=== PATIENT | female | born 1975 | race Caucasian/White ===

== ENCOUNTER 2025-01-15 07:19 | Emergency (ER) | payer BC ==
[~2025-01-15] VITALS: Ht 160 cm; Wt 63.1 kg
[2025-01-15] MEDS: dexamethasone sod phosphate 10mg/ml inj IV STA (07:45)
[2025-01-15] MEDS: famotidine/PF 10 mg/ml inj IV ONE (07:45)
--- NOTE | 2025-01-15 07:45 | Physician Documentation ---
History of Present Illness ~ Chief Complaint: Allergic Reaction Stated Complaint: ALLERGIC REACTION Time Seen by MD: 07:29 HPI 49-year-old female presenting with acute onset difficulty swallowing. She states the symptoms initially started mildly yesterday but then worsened when she woke up this morning. States that she has difficulty swallowing her saliva and feels like she may be having an allergic reaction to something unknown. Patient denies any environmental or food allergies. States that yesterday she was just at home and was not doing anything in particular. She started noticing this issue in the evening and it significantly worsened today. Denies any chest pain or significant shortness of breath but states that she is having issues swallowing her saliva. Denies any fever, chills or any other associated symptoms. Medication Reconciliation Allergies: Coded Allergies: No Known Allergies (Unverified , 01/15/25) Past Medical History Past Medical History: No Pertinent History Review of Systems All Other Systems at this time: Reviewed and Negative Physical Exam Vital Signs: Temperature: 97.8, Source: Temporal, Heart Rate: 106, Respiratory Rate: 18, BP: 148/11, Pulse Oximetry: 100, Weight: 63.100 Physical Exam I have reviewed the triage vitals. CONST: Well developed and well nourished. In no acute distress HENT: Head Atraumatic EYES: Pupils are equal, round and reactive to light. Normal conjunctiva NECK: Normal range of motion. Supple. CARDIO: Normal rate and regular rhythm. No murmurs, rubs, or gallops. S1, S2. PULM/CHEST: No respiratory distress. Lungs clear to auscultation. No wheeze ABD: Soft and nontender. Nondistended. Bowel sounds normal. No guarding. : Exam deferred MSK: No edema. No deformity. NEURO: Alert and oriented to person, place and time. Moving all extremities SKIN: Warm and dry. PSYCH: Normal mood and affect. Good eye contact. Progress Results/Orders Results/Orders Orders - ALYSSA FELICIANO MD * Rt Notification Q1H (01/15/25 07:37) Chest,Single View (01/15/25 07:39) Hs Troponin I W Calculations (01/15/25 09:39) Neck For Soft Tissues (01/15/25 ) Ct Neck Soft Tissues (01/15/25 10:12) Completed Orders - ALYSSA FELICIANO MD Dexamethasone Inj (Decadron 10mg/Ml Inj) (01/15/25 07:37) Famotidine/Pf Iv Inj (Pepcid Iv Inj) (01/15/25 07:40) Cetirizine Tablet (Zyrtec Tablet) (01/15/25 07:40) Racepinephrine Nebule (S-2 Nebule) (01/15/25 07:40) Electrocardiogram (01/15/25 07:39) Cbc/Diff (01/15/25 07:39) CK (01/15/25 07:39) CKMB (01/15/25 07:39) Chest,Single View (01/15/25 07:39) CMP (01/15/25 07:39) Hs Troponin I W Calculations (01/15/25 07:39) Neck For Soft Tissues (01/15/25 ) Ct Neck Soft Tissues (01/15/25 10:12) Hcg, Ur Ql (01/15/25 08:24) Iohexol 300mg/Ml 100ml Inj. (Omnipaque-3 (01/15/25 08:40) Alprazolam Tablet (Xanax Tablet) (01/15/25 09:00) Nitroglycerin Sublingual Tab (Nitrostat (01/15/25 11:35) Medications Received in ER Medications (Trade) Dose Ordered Sig/Jamee Route PRN Reason Start Time Stop Time Status Last Admin Dose Admin (Decadron 10mg/ ml inj) 10 mg ONCE STAT IV 01/15/25 07:37 01/15/25 07:39 DC 01/15/25 07:45 10 MG (Pepcid IV inj) 20 mg ONCE ONCE IV 01/15/25 07:40 01/15/25 07:41 DC 01/15/25 07:45 20 MG (Zyrtec tablet) 10 mg NOW ONCE PO 01/15/25 07:40 01/15/25 07:41 DC 01/15/25 07:47 10 MG (S-2 nebule) 0.5 ml ONCE ONCE IH 01/15/25 07:40 01/15/25 07:41 DC 01/15/25 08:09 0.5 ML (Xanax tablet) 1 mg ONCE ONCE PO 01/15/25 09:00 01/15/25 09:02 DC 01/15/25 09:40 1 MG (Nitrostat SL tablet) 0.4 mg NOW ONCE SL 01/15/25 11:35 01/15/25 11:37 DC 01/15/25 11:42 0.4 MG Vital Signs 01/15/25 01/15/25 01/15/25 01/15/25 07:22 08:10 08:17 08:31 Temp 97.8 Pulse 106 90 110 Resp 18 20 25 B/P (MAP) 148/11 Pulse Ox 100 99 99 O2 Delivery Room Air* Room Air* O2 Flow Rate 0 0 FiO2 21 21 01/15/25 01/15/25 01/15/25 08:31 09:15 10:20 Temp 97.8 97.8 97.8 Pulse 102 88 87 Resp 20 20 17 B/P (MAP) 152/101 (118) 137/104 (115) 122/81 (95) Pulse Ox 99 100 99 O2 Flow Rate 0 0 0 FiO2 21 Laboratory Tests Test 01/15/25 08:03 01/15/25 08:16 Urine HCG, Qualitative Negative White Blood Count 5.0 Red Blood Count 4.00 L Hemoglobin 12.5 Hematocrit 36.4 Mean Corpuscular Volume 91.1 Mean Corpuscular Hemoglobin 31.4 H Mean Corpuscular Hemoglobin Concent 34.4 Red Cell Distribution Width 12.7 Platelet Count 281 Mean Platelet Volume 7.6 Neutrophils (%) (Auto) 45.2 Lymphocytes (%) (Auto) 42.1 Monocytes (%) (Auto) 10.5 Eosinophils (%) (Auto) 1.6 Basophils (%) (Auto) 0.6 Neutrophils # (Auto) 2.3 Lymphocytes # (Auto) 2.1 Monocytes # (Auto) 0.5 Eosinophils # (Auto) 0.1 Basophils # (Auto) 0.0 CBC Comment Sodium Level 137 Potassium Level 3.2 L Chloride Level 101 Carbon Dioxide Level 25.0 Anion Gap 11 Blood Urea Nitrogen 6 L Creatinine 0.90 Estimated GFR/1.73 m2 67 BUN/Creatinine Ratio 6.7 L Glucose Level 83 Calcium Level 8.8 Total Bilirubin 0.4 Aspartate Amino Transf (AST/SGOT) 22 Alanine Aminotransferase (ALT/SGPT) 32 Alkaline Phosphatase 37 L Total Creatine Kinase 100 Creatine Kinase MB 0.8 Creatine Kinase MB Relative Index 0.8 Troponin I High Sensitivity 5 Total Protein 7.0 Albumin 4.0 Globulin 3.0 Albumin/Globulin Ratio 1.3 Chemistry Comments EKG/XRAY/CT/US/VASC/MRI EKG : Additional Comment EKG as interpreted by ED MD showing sinus tachycardia with a rate of 101 beats per minute, normal axis, no ischemia Chest X-Ray : Additional Comments CHEST RADIOGRAPH Indication: SOB Technique: Single frontal view of the chest was obtained COMPARISON: None FINDINGS: Lines and Tubes: None Lungs: Clear Pleura: No effusion. No pneumothorax. Cardiomediastinal contours: Unremarkable Bones: Unremarkable IMPRESSION: No acute disease. Bone/Soft Tissue X-Ray (Spine) : Additional Comment Procedure: DI NECK FOR SOFT TISSUES Exam Date: 01/15/2025 07:55 AM History: SOB Comparison Study: None Technique: Soft Tissue Neck: AP and lateral views. Findings: No evidence of soft tissue swelling or radiopaque foreign body. Epiglottis appears normal. Multilevel degenerative changes of the spine. Impression: Negative soft tissue neck. : Impression EXAM: CT CT NECK SOFT TISSUES W/ IV CONTRAST INDICATION: pharyngeal occlusion Exam Date: 01/15/2025 10:02 AM COMPARISON: DI NECK FOR SOFT TISSUES on DOS: 01/15/25 TECHNIQUE: CT of the neck with intravenous contrast. RADIATION DOSE: CTDIvol: 12.2 mGy, DLP: 353.4 mGy*cm FINDINGS: [id number] diffuse esophageal wall thickening. There is no evidence of cervical mass lesion, pathologically enlarged lymph nodes or fluid collection. The fat planes of the neck appear intact. The airway and larynx are unremarkable. The parotid, submandibular and thyroid glands are unremarkable. The vascular structures of the neck appear patent. The visualized lung apices are clear. The limited visualized portions of the brain are unremarkable. Degenerative changes of the spine. IMPRESSION: [id number] diffuse esophageal wall thickening; nonspecific. Medical Decision Making Differential Diagnosis 49-year-old female presenting with acute onset dysphagia. Initially we suspected that she may have an allergic reaction to something. She was given 10 mg of IV dexamethasone and also 20 mg of IV Pepcid. Additionally she was given cetirizine 10 mg p.o.. Chest x-ray was unremarkable. Soft tissue x-ray of the neck was also unremarkable. The patient was having difficulty swallowing solids but not liquids however she was able to swallow the cetirizine tablet without any difficulty. A CT of the neck soft tissue did not show any occlusion or obstruction but did show some mild edema around the upper esophagus. Patient's lab work was unremarkable. Patient was given sublingual nitroglycerin 0.4 mg with some improvement of symptoms. While in the ED her symptoms also gradually improved. I suspect that the patient may have had potential globus syndrome versus anxiety versus allergic reaction amongst other etiologies. The patient's vital signs are normal and she looks clinically well. At this point in time I believe she is stable and safe for discharge home. I advised the patient to monitor her symptoms for several days for resolution. I encouraged her to drink plenty of fluids. Of note the patient also improved after she was given alprazolam prior to the CT as she was very anxious so some of this may be anxiety related as well it patient advised to follow up with PCP in the next 2-5 days and return to the ED with any acutely worsening symptoms. Departure Disposition: HOME / SELF CARE / HOMELESS Impression: Primary Impression: Dysphagia Condition: Improved Discharge Instructions: Dysphagia Referrals: NO PRIMARY CARE PROVIDER (PCP) Signature Scribe Signature: 1 Attestation: 1 ALYSSA FELICIANO MD Jan 15, 2025 07:45
--- NOTE | 2025-01-15 08:06 | ELECTROCARDIOGRAPH REPORT ---
[facility] Test Date: 2025-01-15 Test Time: 08:03:24 Pat Name: DEB BELL Department: [facility]- Patient ID: [facility]-[id number] Room: Gender: F Hot [employer] Helper: : 1975 Requested By: ALYSSA FELICIANO Order Number: [id number] Reading MD: Dr. Matt Santoro Measurements Intervals [place] Rate: 101 P: 52 OR: 178 QRS: -6 QRSD: 98 T: 23 QT: 358 QTc: 465 Interpretive Statements Sinus tachycardia Left atrial enlargement Electronically Signed On 01-15-2025 19:42:[address] Matt Santoro Please click the below link to view image of tracing.
[2025-01-15] MEDS: racepinephrine 11.25mg/0.5ml nebule IH ONE (08:09)
[2025-01-15 08:10] VITALS: PULSE 90; RESP 20; O2SAT 99
[2025-01-15 08:17] VITALS: PULSE 110; RESP 25; O2SAT 99
--- NOTE | 2025-01-15 08:19 | RADIOLOGY REPORT ---
Procedure: DI NECK FOR SOFT TISSUES Exam Date: 01/15/2025 07:55 AM History: SOB Comparison Study: None Technique: Soft Tissue Neck: AP and lateral views. Findings: No evidence of soft tissue swelling or radiopaque foreign body. Epiglottis appears normal. Multilevel degenerative changes of the spine. Impression: Negative soft tissue neck.
--- NOTE | 2025-01-15 08:19 | RADIOLOGY REPORT ---
CHEST RADIOGRAPH Indication: SOB Technique: Single frontal view of the chest was obtained COMPARISON: None FINDINGS: Lines and Tubes: None Lungs: Clear Pleura: No effusion. No pneumothorax. Cardiomediastinal contours: Unremarkable Bones: Unremarkable IMPRESSION: No acute disease.
[2025-01-15 08:25] LABS: MEAN PLATELET VOLUME 7.6 FL (7.4-10.4); RED CELL DISTRIBUTION WIDTH 12.7 % (11.5-14.5)
[2025-01-15] MEDS ORDERED: iohexol 300mg/ml 100ml inj. ONE (08:40)
[2025-01-15 08:41] LABS: CREATININE 0.90 MG/DL (0.40-0.90); TOTAL CARBON DIOXIDE 25.0 MMOL/L (24-32); eCRCL 63 ML/MIN; eGFR 67 ML/MIN
[2025-01-15 08:51] LABS: URINE HCG NEGATIVE (NEG)
[2025-01-15 09:02] LABS: CREATINE KINASE MB 0.8 ng/ml (0.3-3.6)
[2025-01-15 10:20] VITALS: TEMP 97.8
--- NOTE | 2025-01-15 10:47 | RADIOLOGY REPORT ---
EXAM: CT CT NECK SOFT TISSUES W/ IV CONTRAST INDICATION: pharyngeal occlusion Exam Date: 01/15/2025 10:02 AM COMPARISON: DI NECK FOR SOFT TISSUES on DOS: 01/15/25 TECHNIQUE: CT of the neck with intravenous contrast. RADIATION DOSE: CTDIvol: 12.2 mGy, DLP: 353.4 mGy*cm FINDINGS: [id number]-[id number] diffuse esophageal wall thickening. There is no evidence of cervical mass lesion, pathologically enlarged lymph nodes or fluid collection . The fat planes of the neck appear intact. The airway and larynx are unremarkable. The parotid, submandibular and thyroid glands are unremarkable. The vascular structures of the neck appear patent. The visualized lung apices are clear. The limited visualized portions of the brain are unremarkable. Degenerative changes of the spine. IMPRESSION: Xhwe-[id number] diffuse esophageal wall thickening; nonspecific.
[2025-01-15 12:17] VITALS: BP 102/74; PULSE 87; RESP 14; O2SAT 100
== END 2025-01-15 12:23 | disposition home or self-care (01) ==
LOC: ER 07:20
DX: R13.10 Dysphagia, unspecified (principal); I49.8 Other specified cardiac arrhythmias
CPT/HCPCS: 36415; 70360; 70491; 71045; 80053; 81025; 82550; 82553; 84484; 85025; 93005; 94640; 96374; 96375; 99285; J1100; J3490; Q9967; 94760